=== PATIENT | female | born 2000 ===

== ENCOUNTER 2018-04-20 20:04 | Emergency (ER) | payer OTHER ==
[2018-04-20 20:13] VITALS: BP 156/101
--- NOTE | 2018-04-20 20:31 | EDPHY ---
H & P Stated Complaint: Anxious, haven't slept well x2 weeks, "hyperawareness" Time Seen by Provider: 04/20/18 20:22 HPI/ROS: CHIEF COMPLAINT: "I am feeling anxious and cant sleep" HISTORY OF PRESENT ILLNESS: 18-year-old female, [employer] Student , complaining of anxiety and insomnia the past 2 weeks and related primarily to school issues and relationship issues. Denies suicidal or homicidal ideation. She has longstanding history of anxiety. No history of suicidal ideation or suicide attempt. No hallucination. PHYSICAL EXAM (Prior to examination, patient consented to physical exam, hands were washed and my usual and customary physical exam procedures followed) 1) GENERAL: Well-developed, well-nourished, alert and oriented. Appears tearful 2) HEAD: Normocephalic 3) HEENT: sclera anicteric 4) LUNGS: Breathing comfortably. - Personal History Current Tetanus Diphtheria and Acellular Pertussis (TDAP): Yes - Medical/Surgical History Hx Asthma: No Hx Chronic Respiratory Disease: No Hx Diabetes: No Hx Cardiac Disease: No Hx Renal Disease: No Hx Cirrhosis: No Hx Alcoholism: No Hx HIV/AIDS: No Hx Splenectomy or Spleen Trauma: No Other PMH: Lyme disease, anxiety - Social History Smoking Status: Never smoked Constitutional: Initial Vital Signs Temperature (C) 36.6 C 04/20/18 20:07 Heart Rate 73 04/20/18 20:07 Respiratory Rate 17 04/20/18 20:07 Blood Pressure 156/101 H 04/20/18 20:07 O2 Sat (%) 98 04/20/18 20:07 O2 Delivery Mode Room Air Allergies/Adverse Reactions: tetracycline Allergy (Verified 04/20/18 20:12) Home Medications: Medication Instructions Recorded Sp[place]ul[place] 04/20/18 Medical Decision Making ED Course/Re-evaluation: Patient denies suicidal or homicidal ideation. I do not think the patient is gravely disabled. I do not think she meets criteria for an M1 hold. I have agreed to give her a take-home pack of Ativan. Recommend she follow up at [facility] services tomorrow. Definitely if at any point she develops thoughts of hurting herself or hurting anybody else to seek immediate medical attention. She feels comfortable being discharged. Patient feels comfortable being discharged. All questions and concerns addressed by myself. Patient given my usual and customary discharge precautions and instructions regarding their clinical impression. Care of patient under supervision of secondary supervising physician Dr Barajsa. Departure - Departure Disposition: Home, Routine, Self-Care Clinical Impression: Anxiety Condition: Good Instructions: Lorazepam (By mouth), Anxiety (ED) Additional Instructions: Return to the ER immediately if you experience thoughts of hurting yourself, thoughts of hurting other people, thoughts of killing other people or killing yourself. Referrals: ANNMARIE Miller,. [Clinic] - 1-2 days without fail
[2018-04-20] MEDS ORDERED: LORAZEPAM 1 MG PREPACK#4 BTL TAKEHOME ONE (20:32)
== END 2018-04-20 20:40 | disposition home or self-care (01) ==
DX: F41.9 Anxiety disorder, unspecified (principal)